=== PATIENT | female | born 1970 | race Caucasian/White ===

== ENCOUNTER 2017-01-12 10:59 | Emergency (ER) | payer SELFPAY ==
[~2017-01-12 10:59] MED LIST: AMOXICILLIN500 MG; ATARAX25 MG PO; ATARAX50 MG PO; BACTRIM DS1 TAB PO; BENTYL20 M1 PO; DOXYCYCLINE PO; FLUOCINONIDE 0.60 GM; GARCINIA CAMBO1 EACH PO; KLOR-CON 1010 MEQ PO; PREDNISONE20 MG PO; PRILOSEC20 MG PO; PROVENTIL HFA6.7 G1 IH; TESSALON PERLE100 MG PO; TORSEMIDE10 M1 PO; Torsemide PO; ULTRAM50 M1 PO; VENTOLIN HFA18 G1 INH; ZITHROMAX250MG Z-PAK PO; ZOFRAN4 M2 PO; [UNRECOGNIZED DRUG - REMARK]
[2017-01-12] MEDS ORDERED: NO HOME MEDICATION (12:03)
== END 2017-01-12 12:48 ==
LOC: EDMED 10:59
PROC: 2W3LX1Z Immobilization of Right Lower Extremity using Splint (ICD-10-PCS; principal; 2017-01-12)
DX: S93.401A Sprain of unspecified ligament of right ankle, initial encounter (principal); J45.909 Unspecified asthma, uncomplicated; Z88.5 Allergy status to narcotic agent; Z88.8 Allergy status to other drugs, medicaments and biological substances; X50.1XXA Overexertion from prolonged static or awkward postures, initial encounter; Y92.009 Unspecified place in unspecified non-institutional (private) residence as the place of occurrence of the external cause